=== PATIENT | female | born 1965 | race Caucasian/White ===

== ENCOUNTER → 2019-12-26 | Outpatient (CLI) | payer OTHER ==
[2019-12-26 10:45] LABS: Basophils # (A) 0.1 k/uL (0-0.2); Basophils % (A) 1 %; Eosinophils # (A) 0.3 k/uL (0-0.7); Eosinophils % (A) 3 %; HCT 39.5 % (34.0-46.0); HGB 13.3 gm/dL (11.4-16.0); Lymphocytes # (A) 3.1 k/uL (1.0-4.8); Lymphocytes % (A) 31 %; MCH 30.5 pg (25.0-35.0); MCHC 33.6 g/dL (31.0-37.0); MCV 90.9 fL (80.0-100.0); Mean Platelet Volume 7.2; Monocytes # (A) 0.4 k/uL (0-1.0); Monocytes % (A) 4 %; Neutrophils # (A) 5.8 k/uL (1.3-7.7); Neutrophils % (A) 58 %; Platelet Count 323 k/uL (150-450); RBC 4.35 m/uL (3.80-5.40); RDW 12.4 % (11.5-15.5)
[2019-12-26 15:58] LABS: African American GFR (CKD) 114.6 (60.0-200.0); Albumin 4.6 g/dL (3.80-4.90); Anion Gap 4.8 mmol/L (4.00-12.00); Calcium 9.9 mg/dL (8.7-10.3); Carbon Dioxide 31.2 mmol/L (21.6-31.8); Chol/HDL Ratio 2.64; Globulin 2.3 g/dL (1.6-3.3); LDL Cholesterol,Calculated 110.6 mg/dL (0.0-131.0); Non-African American GFR(CKD) 98.9 (60.0-200.0); Potassium 4.7 mmol/L (3.5-5.5); Total Bilirubin 0.8 mg/dL (0.2-1.2); Total Protein 6.9 g/dL (6.2-8.2); VLDL Calculation 14.4 mg/dL (5.00-40.00)
== END | disposition home or self-care (01) ==
LOC: LABWHC1 10:17
PROVIDERS: ATTEND Nurse Practitioner Family
DX: K21.9 Gastro-esophageal reflux disease without esophagitis (principal); R53.83 Other fatigue; Z13.228 Encounter for screening for other metabolic disorders; Z13.220 Encounter for screening for lipoid disorders; Z98.84 Bariatric surgery status
CPT/HCPCS: 36415; 80053; 80061; 82150; 82306; 82607; 83690; 84443; 85025

== ENCOUNTER → 2021-03-17 | Outpatient (CLI) | payer OTHER ==
--- NOTE | 2021-03-18 03:24 | MR ---
EXAMINATION TYPE: MR shoulder RT wo con DATE OF EXAM: 03/17/2021 COMPARISON: None HISTORY: Right shoulder pain, injury 6 mos ago. Multiplanar multiecho imaging of the right shoulder was performed without contrast. There is shoulder joint effusion. Subscapularis tendon is intact. Biceps tendon is intact. There is f luid around the biceps tendon. There is moderate hypertrophic spurring at the AC joint with mild suba cromial impingement. There is significant thickening and increased signal in the supraspinatus tendon over the top of the humeral head and at the greater tuberosity of the humerus. There is full-thickne ss tear of the tendon without retraction. There is no evidence of a fracture. Glenoid katie appear intact. Scapula appears intact. IMPRESSION: Moderate shoulder joint effusion. Full-thickness tear of the supraspinatus tendon without retraction. No fracture seen.
== END | disposition home or self-care (01) ==
LOC: RADMRIMAIN 19:12
PROVIDERS: ATTEND Orthopaedic Surgery
DX: M75.121 Complete rotator cuff tear or rupture of right shoulder, not specified as traumatic (principal)

== ENCOUNTER → 2021-03-22 | Outpatient (CLI) | payer OTHER ==
--- NOTE | 2021-03-23 07:56 | CT ---
EXAMINATION TYPE: CT lumbar spine wo con DATE OF EXAM: 03/22/2021 5:28 PM COMPARISON: None. HISTORY: low back pain CT DLP: 876.3 mGycm Automated exposure control for dose reduction was used. Unenhanced CT of the lumbar spine was performed. Bone and soft tissue window settings are submitted as well as coronal and sagittal reconstructions. There are 5 lumbar-type vertebra. There is grade 1 anterolisthesis L4 on L5. Vertebral body heights a nd disc space heights are maintained. Axial images show T12-L1, L1-L2, and L2-L3 levels to appear within normal limits. Axial images at L3-L4 levels with mild/moderate facet degenerative changes and ligamentum flavum hype rtrophy causing posterolateral thecal sac. There is mild broad-based disc bulge effacing the anterior thecal sac. There is mild bilateral anterior inferior neural foraminal narrowing. Axial images at the L4-L5 level show moderate to advanced facet degenerative changes bilaterally. The spondylolisthesis with broad-based posterior disc protrusion. There is effacement of the anterior an d posterior lateral thecal sac and image 50. Prominent spinal canal stenosis at this level. Mild bila teral neural foraminal narrowing. Axial images at L5-S1 levels with moderate facet arthropathy bilaterally. Spinal canal is preserved. The bilateral neural foramina are patent. Paraspinal muscle bulk is maintained. IMPRESSION: Spondylolisthesis L4-L5 level. Multilevel degenerative changes L3-L4 through L5-S1 levels as detailed above. Most prominent spinal canal effacement or stenosis at L4-L5 level.
== END | disposition home or self-care (01) ==
LOC: RADCTMAIN 17:11
PROVIDERS: ATTEND Orthopaedic Surgery
DX: M51.26 Other intervertebral disc displacement, lumbar region (principal); M48.061 Spinal stenosis, lumbar region without neurogenic claudication; M47.817 Spondylosis without myelopathy or radiculopathy, lumbosacral region; M99.71 Connective tissue and disc stenosis of intervertebral foramina of cervical region; M43.16 Spondylolisthesis, lumbar region
CPT/HCPCS: 72131

== ENCOUNTER → 2021-06-27 | Outpatient (CLI) | payer OTHER ==
--- NOTE | 2021-06-27 17:32 | MR ---
EXAMINATION TYPE: MR lumbar spine wo con DATE OF EXAM: 06/27/2021 COMPARISON: CT 03/22/2021 HISTORY: Low back pain radiating into hips and disha lower extremities TECHNIQUE: Multiplanar, multisequence images of the lumbar spine were acquired without IV contrast. L1-L2: Normal disc appearance without desiccation. No herniation, protrusion or disc bulging. No ca nal stenosis is present. Foramina are patent bilaterally. There is some facet arthropathy change. L2-L3: Normal disc appearance without desiccation. No herniation, protrusion or disc bulging. No ca nal stenosis is present. Foramina are patent bilaterally. Facet arthropathy changes are present, hyp ertrophic change causes some minimal posterior lateral mass effect on the thecal sac. L3-L4: Normal disc appearance without desiccation. No herniation, protrusion or disc bulging. No ca nal stenosis is present. Foramina are patent bilaterally. There is some facet arthropathy with hyper trophy ligamentum flavum. There is posterior lateral mass effect on the thecal sac. L4-L5: Listhesis contributes with significant facet arthropathy change which encroaches on the latera l recesses greater on the right than on the left to cause a trefoil appearance of the thecal sac, jasmin e canal central stenosis. Listhesis also contributes to cause foraminal encroachment. No disc herniat ion. L5-S1: There is facet arthropathy change present. No evident disc herniation. Facet arthropathy encro ach somewhat on the lateral recess greater on the left than on the right. Lumbar segments are intact. No paraspinal masses are identified. Conus medullaris has a normal appe arance. Anterolisthes grade 1 at L4-5. There is some loss of disc signal L4-5 consistent with disc de siccation, some mild loss of disc height. IMPRESSION: Facet arthropathy, spondylolisthesis with spinal stenosis noted at L4-5.
== END | disposition home or self-care (01) ==
LOC: RADMRIMAIN 12:56
PROVIDERS: ATTEND Orthopaedic Surgery
DX: M48.061 Spinal stenosis, lumbar region without neurogenic claudication (principal); M47.26 Other spondylosis with radiculopathy, lumbar region; M43.16 Spondylolisthesis, lumbar region
CPT/HCPCS: 72148

== ENCOUNTER → 2022-04-16 | Outpatient (CLI) | payer OTHER | END | disposition home or self-care (01) | LOC: LABPAT 09:26 | PROVIDERS: ATTEND Orthopaedic Surgery | DX: Z53.9 Procedure and treatment not carried out, unspecified reason (principal) ==

== ENCOUNTER → 2022-06-11 | Outpatient (CLI) | payer OTHER ==
[2022-06-11 18:44] LABS: Basophils # (A) 0.15 X 10*3/uL (0.00-0.10); Basophils % (A) 1.6 %; Eosinophils # (A) 0.33 X 10*3/uL (0.04-0.35); Eosinophils % (A) 3.4 %; HCT 37.6 % (37.2-46.3); HGB 12.6 g/dL (12.0-15.0); Immature Grans, Automated 0.2 %; Lymphocytes % (A) 40.6 %; MCH 30.2 pg (27.0-32.0); MCHC 33.5 g/dL (32.0-37.0); MCV 90.2 fL (80.0-97.0); Monocytes # (A) 0.77 X 10*3/uL (0.20-1.00); NRBC Per 100 WBC 0 /100 WBCS (0.0-0.0); Neutrophils # (A) 4.43 X 10*3/uL (1.80-7.70); Neutrophils % (A) 46.2 %; Platelet Count 286 X 10*3/uL (140-440); RBC 4.17 X 10*6/uL (4.10-5.20)
[2022-06-11 18:53] LABS: African American GFR (CKD) 109.1 (60.0-200.0); Anion Gap 11.2 mmol/L (10.00-18.00); BUN/Creat Ratio 13.43 Ratio (12.00-20.00); Blood Urea Nitrogen 9.6 mg/dL (9.0-27.0); Calcium 9.2 mg/dL (8.7-10.3); Carbon Dioxide 24.6 mmol/L (20.0-27.5); Non-African American GFR(CKD) 94.1 (60.0-200.0); Potassium 4.4 mmol/L (3.5-5.5)
[2022-06-11 19:04] LABS: INR 0.92 (0.90-1.11); Prothrombin Time 10.4 sec (9.9-11.9)
== END | disposition home or self-care (01) ==
LOC: LABPAT 14:41
PROVIDERS: ATTEND Orthopaedic Surgery
DX: Z01.812 Encounter for preprocedural laboratory examination (principal); M43.16 Spondylolisthesis, lumbar region; Z22.322 Carrier or suspected carrier of Methicillin resistant Staphylococcus aureus
CPT/HCPCS: 80048; 85025; 85610; 87070

== ENCOUNTER 2022-07-03 14:50 | Inpatient (IN) | payer OTHER ==
[2022-06-28 14:00] VITALS: BMI 35.3
[~2022-07-03 14:50] MED LIST: ACETAMINOPHEN TAB 500 MG TAB PO PRN; GABAPENTIN 300 MG CAP PO PRN; HYDROmorphone 0.5 MG/0.5 ML SYRINGE IVP PRN; LIDOCAINE 1% (10MG/ML) FOR IV START INTRADERMA PRN; ONDANSETRON 4 MG/2 ML VIAL IVP ONE; ONDANSETRON 4 MG/2 ML VIAL IVP PRN; SCOPOLAMINE 1 MG/72 HR PATCH TRANSDERM ONE; TRANEXAMIC ACID IN NACL,ISO-OS 1,000 MG in SALINE 1 100ML.BAG IVPB PRN
[2022-07-03] MEDS ORDERED: THROMBIN (BOVINE) 5,000 UNIT VIAL ONE (15:01)
[2022-07-03] MEDS ORDERED: LABETALOL 5 MG/ML VIAL MDV ONE (15:01)
[2022-07-03] MEDS ORDERED: PROPOFOL 10 MG/ML 20 ML VIAL IV ONE (15:01)
[2022-07-03] MEDS ORDERED: KETAMINE 10 MG/ML 20 ML VIAL ONE (15:01)
[2022-07-03] MEDS ORDERED: GELATIN SPONGE,ABSORB (LARGE) 1 EACH SPONGE ONE (15:01)
[2022-07-03] MEDS ORDERED: ACETAMINOPHEN IV (For NPO) 1,000 MG/100 ML VIAL ONE (15:01)
[2022-07-03] MEDS ORDERED: fentaNYL (PF) 50 MCG/ML 2 ML AMP ONE (15:01)
[2022-07-03] MEDS ORDERED: SUCCINYLCHOLINE CHLORIDE 200 MG/10 ML VIAL IV ONE (15:01)
[2022-07-03] MEDS ORDERED: SODIUM CHLORIDE 0.9% 1,000 ML BAG ONE (15:01)
[2022-07-03] MEDS ORDERED: HYDROmorphone (PF) 1 MG/ML ONE (15:01)
[2022-07-03] MEDS ORDERED: ONDANSETRON 4 MG/2 ML VIAL ONE (15:01)
[2022-07-03] MEDS ORDERED: ROCURONIUM 10 MG/ML (5 ML VIAL) IV ONE (15:01)
[2022-07-03] MEDS ORDERED: NEOSTIGMINE 1 MG/ML 10 ML VIAL ONE (15:01)
[2022-07-03] MEDS ORDERED: TRANEXAMIC ACID IN NACL,ISO-OS 1,000 MG/100 ML BAG ONE (15:01)
[2022-07-03] MEDS ORDERED: GLYCOPYRROLATE 0.2 MG/ML 2 ML VIAL ONE (15:01)
[2022-07-03] MEDS ORDERED: VANCOMYCIN 1,000 MG VIAL ONE (15:01)
[2022-07-03] MEDS ORDERED: GABAPENTIN 300 MG CAP ONE (15:01)
[2022-07-03] MEDS ORDERED: LIDOCAINE 2% INJ 20 MG/ML (2 ML VIAL) ONE (15:01)
[2022-07-03] MEDS ORDERED: DEXAMETHASONE SOD PHOSPHATE 4 MG/ML 1 ML VIAL ONE (15:01)
[2022-07-03] MEDS ORDERED: MIDAZOLAM 2 MG/2 ML VIAL ONE (15:01)
[2022-07-03] MEDS ORDERED: BUPIVACAINE (PF) 0.25% 30 ML VIAL ONE (15:01)
[2022-07-03] MEDS: LACTATED RINGERS 1,000 ML IV SCH (19:50)
[2022-07-03] MEDS ORDERED: HYDROmorphone 1 MG/ML 1 ML SYRINGE IVP PRN (22:10)
[2022-07-03] MEDS ORDERED: HYDROmorphone 0.5 MG/0.5 ML SYRINGE IVP PRN (22:10)
[2022-07-03] MEDS ORDERED: SENNOSIDES 8.6 MG TAB PO PRN (22:15)
[2022-07-03] MEDS ORDERED: HYDROcodone/APAP 5-325MG 1 EACH TAB PO PRN (22:23)
[2022-07-03] MEDS ORDERED: HYDROcodone/APAP 10-325MG 1 EACH TAB PO PRN (22:24)
[2022-07-03] MEDS: SODIUM CHLORIDE 0.9% 1,000 ML IV SCH (23:41)
[2022-07-03] MEDS: GABAPENTIN 300 MG CAP PO SCH (23:43)
[2022-07-03] MEDS: CYCLOBENZAPRINE 5 MG TAB PO SCH (23:43)
[2022-07-04] MEDS: LACTATED RINGERS 1,000 ML IV SCH (02:48)
--- NOTE | 2022-07-04 08:27 | P.PN ---
Subjective Progress Note Date: 07/04/22 pt s/e doing well no issues overnight. Has not been up yet. King in place still. No numbness/tingling or weakness. States she feels better in her legs. denies any bowel/bladder isseus. Objective - Vital Signs Vital signs: Vital Signs Temp 98.0 F 07/04/22 03:18 Pulse 76 07/04/22 03:18 Resp 15 07/04/22 03:18 BP 147/84 07/04/22 03:18 Pulse Ox 97 07/04/22 03:18 FiO2 Intake & Output 07/03/22 07/04/22 07/04/22 18:59 06:59 18:59 Intake Total 50 Output Total 1650 Balance -1600 Weight 86.183 kg Intake: Intake, IV Titration 50 Amount ceFAZolin 2 gm In Sodium 50 Chloride 0.9% 50 ml @ 100 mls/hr IVPB Q8HR [facility] Rx# :[id number] Output: Urine 1650 Other: # Voids 2 - Exam Patient is alert and oriented 3 appears well-nourished well-hydrated is in no acute distress. They do not appear septic. On exam the patient has no tenderness to palpation of her thoracic or lumbar spine. There is no edema or ballottement sign. Lower extremities with [5]/5 strength in all major muscle groups Upper extremities show [5]/5 strength in all major muscle groups. [] [2]/4DTR all UE and LE b/l Patient shows a negative Homans, Mcrae's, negative Babinski's negative clonus bilaterally. negative straight leg raise bilaterally. No tensioning signs. Cranial nerves II through XII are grossly intact. There is FROM that is painless of the b/l UE and LE in all major joints [w/o pain]. They are intact to light touch sensation in L2 to S1 nerve distribution. Patient has palpable dorsalis pedis was posterior tibial pulses. Compartments are soft and compressible. Incisions are clean dry and intact Assessment and Plan Assessment: 57-year-old female postop day 1 L4-L5 minimally invasive TLIF Plan: -Appreciate operations consultant and team management. -Activity: Ambulate QID, OOB all meals, up and about, limit lifting bending twisting to less than 5 lbs. Use walker or cane if needed for stability. -Daily PT/OT, increase ambulation strength and balance. -Brace when up and about, not needed in bed or chair -Pain control: Adequate at this time -Meds: reviewed -GI ppx: sennish Miralax -DC king when up and about, bedside commode if needed -DVT PPX: OK to restart Heparin tonight -Hygiene: Shower today. Maintain dressing clean and dry. Meticulous cleaning after BMs away from incision site -Encourage IS 10x/hr -Dispo: Likely home today once pain control King out and up and about and LSO delivered
[2022-07-04] MEDS: GABAPENTIN 300 MG CAP PO SCH ×2 (09:13→15:57)
[2022-07-04] MEDS: CYCLOBENZAPRINE 5 MG TAB PO SCH ×2 (09:13→15:57)
[2022-07-04 09:37] VITALS: RESP 18
--- NOTE | 2022-07-04 09:40 | P.CONS ---
History of Present Illness - Reason for Consult Consult date: 07/04/22 Medical Management Requesting physician: Laith Albarado - History of Present Illness History of Presenting Illness: Patient is a very pleasant 57-year-old female with a past medical history of GERD, depression, anxiety,and chronic back pain with radiculopathy. Patient is currently admitted under orthospine surgical team and is status post laminectomy and decompression with L4 through L5 interbody fusion. Surgical procedure was completed by Dr. Albarado on 07/03/22. We have been consulted for medical management throughout patient's hospitalization. patient was seen and fully evaluated at bedside this morning. She reports feeling well. Patient reports mild lower back pain that she states is being managed by current pain medication regimen. She denies having any lower extremity weakness/numbness/tingling. Lockhart catheter remains in place. Patient does report a brief episode of postoperative nausea and which she states is currently controlled. Patient reports eating breakfast with no episodes of nausea or vomiting following. Vital signs unremarkable. Patient denies having any needs, concerns, or complaints at this time. Lockhart catheter to be discontinued and voiding challenge to be completed. Review of systems: Pertinent positives and negatives as discussed in HPI, a complete review of systems was performed and all other systems are negative. Physical exam: Vital signs reviewed and stable. General: Nontoxic, no distress and appears stated age. Derm: Skin warm and dry, normal coloration for ethnicity. Head: Atraumatic, normocephalic and symmetric. Eyes: EOMs intact, no lid lag, and anicteric sclera Mouth: no lip lesions, mucus membranes moist Cardiovascular: regular rate and rhythm with normal S1S2, no murmur, positive posterior tibial pulses bilaterally, and cap refill < 2 seconds. Lungs: Respirations even, regular, and unlabored on room air. Lungs CTA bilaterally, no rhonchi, no rales, no wheezing, and no accessory muscle usage. Abdominal: soft, nontender to palpation, no guarding, no appreciable organomegaly Ext: ROM intact. No gross muscle atrophy, no edema, no contractures Neuro: Speech clear, face symmetrical and CN II-XII grossly intact with no noted focal neuro deficits Psych: Alert and oriented to person, place, time, and situation. Appropriate and pleasant affect. Assessment and Plan of Care: Status post laminectomy and decompression with L4 through L5 interbody fusion. -Surgical procedure was completed by Dr. Albarado on 07/03/22. -Management per primary admitting orthospine surgical team including DVT prophylaxis, pain management, postoperative wound/drain management and PT/OT. GERD Continue daily medication regimen with Dexlansoprazole. Depression and anxiety Continue daily medication regimen with amitriptyline Thank you for allowing us to participate in the care of this pleasant patient. Do not hesitate to contact us with questions. Someone can be reached from the [facility] hospitalist group all hours of the day at [phone] or via [employer]. I reviewed the documentation as provided by the OLIVIER above, who is the original author of this note. I agree with the documented assessment and plan, with the following changes: none Past Medical History Past Medical History: GERD/Reflux, Musculoskeletal Disorder Additional Past Medical History / Comment(s): Spinal Stenosis, Sciatica. History of Any Multi-Drug Resistant Organisms: None Reported Past Surgical History: Bariatric Surgery, Section, Cholecystectomy, Hysterectomy, Orthopedic Surgery Additional Past Surgical History / Comment(s): Section X3, bilateral carpal tunnel, gastric sleeve. Past Anesthesia/Blood Transfusion Reactions: Motion Sickness, Postoperative Nausea & Vomiting (PONV) Past Psychological History: No Psychological Hx Reported Smoking Status: Former smoker Past Alcohol Use History: None Reported Additional Past Alcohol Use History / Comment(s): Quit smoking 20 yrs ago. Past Drug Use History: Marijuana Additional Drug Use History / Comment(s): Marijuana use daily. Aware no use 24 hrs prior to procedure. - Past Family History Mother Family Medical History: No Reported History Medications and Allergies Home Medications Medication Instructions Recorded Confirmed Type Amitriptyline HCl 50 mg PO HS 04/24/22 07/03/22 History Dexlansoprazole [Dexilant] 60 mg PO HS 06/19/22 07/03/22 History Ibuprofen [Motrin] 800 mg PO TID PRN 06/20/22 07/03/22 History Lidocaine 5% Patch [Lidoderm 5% 1 patch TOPICAL HS PRN 06/28/22 06/28/22 History Patch] ALPRAZolam [Xanax] 0.25 mg PO TID PRN 07/03/22 07/03/22 History Cyclobenzaprine [Flexeril] 5 mg PO TID #24 tablet 07/04/22 Rx Gabapentin 300 mg PO TID #30 cap 07/04/22 Rx HYDROcodone/APAP 5-325MG [[place] 1 tab PO Q6HR PRN #32 tab 07/04/22 Rx 5-325] Sennosides/Docusate Sodium [Senna 1 each PO DAILY #20 tab 07/04/22 Rx Plus 8.6-50 mg Tablet] cefaDROXiL [Duricef] 500 mg PO Q12HR 5 Days #10 cap 07/04/22 Rx Allergies Allergy/AdvReac Type Severity Reaction Status Date / Time No Known Allergies Allergy Verified 07/03/22 20:13 Physical Exam Osteopathic Statement: *. No significant issues noted on an osteopathic structural exam other than those noted in the History and Physical/Consult. Vitals: Vital Signs Temp Pulse Resp BP Pulse Ox 07/04/22 09:18 18 07/04/22 03:18 98.0 F 76 15 147/84 97 07/03/22 23:04 83 158/90 97 07/03/22 22:04 71 146/87 98 07/03/22 21:34 77 147/94 98 07/03/22 21:12 97.7 F 77 16 155/83 98 07/03/22 21:04 76 158/97 99 Intake and Output 07/03/22 07/04/22 07/04/22 22:59 06:59 14:59 Intake Total 50 Output Total 1650 Balance -1600 Intake: Intake, IV Titration 50 Amount ceFAZolin 2 gm In Sodium 50 Chloride 0.9% 50 ml @ 100 mls/hr IVPB Q8HR [facility] Rx# :[id number] Output: Urine 1650 Other: Voiding Method Indwelling Catheter # Voids 2 Weight 86.183 kg
--- NOTE | 2022-07-04 10:41 | P.OP ---
Date of Procedure: 07/03/22 Preoperative Diagnosis: 1. L4-5 Grade I spondylolisthesis, unstable 2. RLE radciulopathy 3. Mechanical low back pain Postoperative Diagnosis: 1. L4-5 Grade I spondylolisthesis, unstable 2. RLE radciulopathy 3. Mechanical low back pain Procedure(s) Performed: 1. L4-5 posteriolateral and interbody fusion combined minimally invasive (70252) 2. Insertion of biomechanical device L4-5 (88923) 3. L4-5 non segmental instrumentation (27644) 4. Posterior Extradural Laminotomy or Laminectomy for Exploration/ Decompression of Neural Elements L4-5 (72920) 5. Use of intraoperative microscope (77413) 6. Use of intraoperative neuro monitoring 7. Interpretation of intraoperative fluoroscopy less than 1 hour (09895) Implants: -Globus sable cage 9-16 mm x10mm -Thu everest MIS screw and nery system -Nicole -Autograft -Allograft Anesthesia: GETA Surgeon: Laith Albarado Dial Marker #1: Douglas Anguiano (Was present and assisted in all aspects of the case including exposure placement of retractors screw placement cage placement decompression closing and bandages) Estimated Blood Loss (ml): 100 IV fluids (ml): 2,500 Urine output (ml): 300 Pathology: none sent Condition: stable Disposition: PACU Indications for Procedure: 57-year-old female presented for surgery today she has been treated by the [facility] for some time now for her L4 5 grade 1 s pondylolisthesis which is unstable. She has undergone physical therapy home exercise programs medications injections and a slew of other conservative treatment which has failed to alleviate her symptoms. She continues to have severe low back pain and is unable to perform her activities of daily living secondary to this. We discussed all of her options including operative and nonoperative. We discussed different operative options and she has elected for L4 5 MIS T LIF. We discussed risks and benefits of surgery as outlined in the risk review she is ready and willing to proceed with the procedure at this time. Description of Procedure: The patient was seen and examined in the preoperative area. All preoperative protocols were followed. Informed consent was obtained risks and benefits of the procedure were discussed at length. Risks including bleeding infection damage to the surrounding tissue and risk of reoperation were discussed with the patient. Risk of anesthesia up to and including was a discussed with the patient. These are outlined in the risk review. They were willing to accept these risks and all of the risks of surgery. The patient was given a weight- based dose of antibiotics in the form of 2 g Ancef. The patient was seen and evaluated by the anesthesia team who deemed them fit for surgery. The site was marked, the patient was willing to proceed with the procedure. The patient was transferred to the operative suite by the Department of anesthesia. They were then drifted off to sleep by the department anesthesia and GETA was performed. The patient tolerated this well. Lockhart catheter was placed by nursing staff, atraumatically. Once confirmation of lines and ventilation the patient was transferred to a prone Dustin table very carefully. All bony prominences including wrists, elbows, axilla, chest, hips, and thighs, and feet were padded very well. Special attention was paid to the genitalia and these were padded accordingly. SCDs were placed on bilateral lower extremities and were connected. Arms were well padded and placed on arm boards up and out in the 90/90 position. Once in position, again we confirmed good ventilation capabilities and that lines were running appropriately. The patient's lumbar spine was then exposed. 1010s were placed outlining the incision site. Standard alcohol was used to clean the incision site and allowed to dry. C-arm was used to biomark the patient and confirm level for incision which was marked with a skin marker. Operative briefing was performed with all teams and everyone in agreement to proceed. The patient was then prepped and draped in a normal sterile fashion. Timeout was then performed and all parties were in agreement with the procedure to be performed. Fluoroscopic guidance was then used to place a tubular retractor system in an optimal position on the right-hand side of the patient at L4-L5. Skin incision was made and sequential dilation taken down to the L4-L5 interspace facet joints and pars. Once the tubular retractor system was in a good position AP and lateral imaging confirmed its positioning. The operating microscope was then brought in for visualization. We then performed limited myomectomy which uncovered the facet joints and revealed a pars defect at the L4 pars. We have performed a L-shaped cut over the lamina and inferior articular facet of L4 using a high-speed bur. This loosened the facet. Osteotome was then used to complete this cut and the facet was removed entirely along with the pars defect. We then performed high-speed bur cut transversely over the superior articular facet of L5 osteotome was then used to complete this cut and this opened up the foramen in this area for a pedicle to pedicle decompression. We finished our medial decompression with a 3 Kerrison performing an extra dural decompression of neural elements. The ligamentum flavum was removed as it was compressive in pathology. An [id number] decompression was then performed using Kerrison rongeurs. We then turned our attention back to the foramen the disc was identified the foraminal ligament was removed and the neural elements were mobilized this mobilization allowed for protection the disc space was identified. An osteotome was then used to access the disc space and under lateral fluoroscopic guidance it was advanced until it was centered in A to P view and anterior on the lateral view. We then perform sequential shaving until endplates were clear of any cartilage and disc material had been removed pituitary was used to remove any further free disc material. Down-biting curet was used to scrape endplates and to reach across midline to remove further disc material across midline. We then used blunt trials to trial the size implant desired. A 12 mm trial was placed and it had good fit and showed good lift and reduction. This was removed. We then irrigated the disc space. A mixture of autograft and allograft was then placed anterior within the disc space and impacted using a blunt trial. The cage was then selected and while protecting neural elements the cage was impacted into position under lateral fluoroscopic guidance. It was then expanded until it met the endplates and created good lift and reduction. The cage was tested and it was stable. Cages then back filled with DBM putty. The contact center agent was removed and the cage was then visualized and tested again it was stable and in good position. AP confirmed good central position. We then irrigated out the area perform meticulous hemostasis inspected the area for any issues and everything was stable. There were no dural tears there was good decompression of the extradural elements. The tubular retractor system was then carefully removed under direct visualization. We then turned our attention to placement of screws [employer]'s spine mask navigation was used for the placement of screws at L4 and L5. The spine mask was placed in a 3-D C-arm spent was obtained and registered. It was then confirmed to be accurate. We then navigated a Jamshidi into the pedicles and vertebral bodies of L4 and L5 respectively wires were placed in the void of the Jamshidi. The perfect scalpel was used over these wires to create a path. Screws were then measured and placed over these wires using a navigated screwdriver. Once the screw was at the back of the body the wire was pulled and screws were advanced until an optimal position. Once screws were in place they were tested and all tested above 20 mA. With screws in position we measured for a nery once the nery was measured was selected and the nery was placed subfascially bilaterally. We then lock set screws into L5 bilaterally and sequentially reduced set screws into L4 bilaterally for spondylolisthesis reduction this was done under lateral fluoroscopic guidance. This showed good reduction of listhesis as well as maintenance of height and decompression. Set screws were then final tightened using torque limiter. Tabs were then broken and confirmed to be removed. Final imaging was then taken AP and lateral confirmed good placement of screws as well as cage with good reduction of listhesis in good decompression. Wounds were then copiously irrigated with normal sterile saline. Deep fascia was closed with 0 Vicryl superficial subcu tissue closed with 2-0 Vicryl and sk in closed with skin lexi. Wound edges approximated very well. The wound was then cleaned and dressed sterilely with operative foam dressings. The patient was transferred back to their hospital bed atraumatically. Drain continued to hold suction and were in good position. Patient was then awakened and extubated by the department of anesthesia having tolerated the procedure very well with no complications. They were transferred to the postoperative care unit in stable condition.
[2022-07-04] MEDS: SODIUM CHLORIDE 0.9% 1,000 ML IV SCH (13:19)
[2022-07-04 14:42] VITALS: BP 149/90; PULSE 83; TEMP 98.4
--- NOTE | 2022-07-04 15:00 | P.DS ---
Providers Date of admission: 07/03/22 18:32 Expected date of discharge: 07/04/22 Attending physician: Laith Albarado DO Consults: 07/03/22 22:15 Consult Physician Routine Consulting Provider: Eloina Banks Consult Reason/Comments: Medical Management Do you want consulting provider notified?: Yes Primary care physician: [facility] Course: Date of admission: 07/03/2022 Date of discharge: 07/04/2022 Admission diagnosis: 1. L4-5 Grade I spondylolisthesis, unstable 2. RLE radciulopathy 3. Mechanical low back pain Discharge diagnosis: Same Attending physician: Dr. Albarado Surgical procedures: L4-L5 MIS TLIF Brief history: Patient is a 57-year-old female with a history of L4-L5 grade 1 spondylolisthesis, unstable; right lower extremity radiculopathy; mechanical low back pain. At this point patient has failed conservative treatment measures and has opted to proceed with a elective L4-L5 MIS TLIF. Hospital course: Details of patient's surgery can be found in operative report. Patient tolerated the procedure well and was subsequently transported to orthopedic floor. Patient's orthopeidc and medical care was provided daily. Patient had daily laboratory tests performed for evaluation of overall blood counts. Patient had daily physical therapy to include strengthening range of motion as well as education with walker ambulation. Patient was noted to have a relatively uneventful postoperative course. Patient reported satisfactory pain control with oral pain medications by postoperative day 1. Patient showed satisfactory progress with physical therapy. Patient moved steadily through the program and had no difficulty meeting the goals by postoperative day 1. Given patient's otherwise satisfactory course and having met physical therapy goals, plan is to discharge patient home with health services on postoperative day 1. Discharge condition/disposition: Patient will be discharged home with health services in stable condition. Discharge medications: Instructions are given on resumption of patient's normal daily medications per primary care recommendation, in addition patient will be p rescribed Vermillion; gabapentin; Flexeril; senna; Duricef. Spine Discharge and Recovery Instructions Date of Surgery: 07/03/2022 Diagnosis: L4-L5 grade 1 spondylolisthesis, unstable; right lower shoulder radiculopathy; mechanical low back pain Procedure: L4-L5 MIS TLIF Medications: See medication list All medication refills should be obtained through your primary care doctor or your clinic spine surgeon. Please discuss prescription refills at your follow up appointment. Do not call the hospital for medication refills. Dressing: Leave your dressing in place for a total of 5 days post operatively. Then you may remove your dressing and leave open to air. Keep the area clean and if not able to keep area clean, then cover with sterile gauze and tape. Showering: You may shower 3 days after your procedure allowing soap and water to run over incision. Do not scrub. Do not soak. Blot dry. Follow up: Please confirm a follow up appointment with your surgeon 3 weeks post operatively. Please make an appointment to follow up with your PCP in 1-2 weeks after surgery for evaluation 3 phase, 3-week plan POST OP WEEKS 1-3 1. Lifting/carrying/pushing/pulling limited to less than 5 pounds. 2. Do not sit for longer than 15 minutes at one time. Get up and walk around. Prolonged sitting is NOT advised. If you lay down, see if you can tolerate laying down on you front (belly side) 3. Walk for periods of 15 minutes = 1 mile but no longer; do it multiple times times each day. 4. Ice your low back after activity. POST OP WEEKS 3-6 1. Lifting limited to less than 20 pounds. 2. Do not sit for longer than 30 minutes at a time. Frequently change positions. Use a sit-to stand workstation or take frequent breaks from sitting if you have returned to work. 3. Walk for 30 minutes each day. If possible, do these three or more times a day POST OP WEEKS 6+ At your 6-week appointment we will give you a physical therapy referral to focus on a core stabilization and strengthening program. You should also work on leg & buttock strengthening, hamstring & quadriceps stretching, and continue a low impact aerobic activity program such as swimming, walking, or riding a stationary bicycle. During the initial 6 weeks after your surgery, you are at the highest risk of re-injuring your spine. You should generally avoid BLTs (bending, lifting and twisting combination motions) and follow the above guidelines to reduce the chance of reinjury. You can anticipate post op appointments in our office at approximately 3 weeks and 6 weeks after your surgery. INCISION CARE: If your incision is not draining you do NOT need to cover it with a dressing. Keep your incision clean, dry and intact. In most cases, we apply skin glue, lexi or sutures to the incision at the time of surgery. This will be like a crust or have the appearance of a scab and will fall off in time on its own. The stitches or lexi need to be removed at 3 weeks post op appointment. You may begin to shower 3 days after surgery (this allows the glue to giraldo well). However, please avoid scrubbing the incision site or peeling off any of the skin glue. This will ensure optimal healing of your incision. Also, during this time avoid soaking the incision area in water - this includes swimming pools, hot tubs or baths. No ointments, lotions or oils on the incision until your surgeon allows. Leave lexi, sutures or glue in place. Neurological dysfunction that comes on suddenly can also be a sign of a stroke. Below some common symptoms of a stroke are listed: B - balance difficulty such as sudden onset walking or leaning to one side - NEW E - eye problem such as sudden double vision or trouble seeing on one side - NEW F - Facial weakness or numbness on one side - NEW A - Arm or leg weakness or numbness on one side - NEW S - Slurred speech or difficulty with word finding - NEW T - Time is BRAIN! Call 911 as soon as you recognize these symptoms Diet: Consume a regular diet rich in vegetables and lean protein such as chicken or fish. You should consume in a ratio of approximately 20% fats|40% carbohydrates|40%protein. Vegetables, sweet potatoes, brown rice or quinoa are examples of good carbohydrates. Chips, white bread, cookies and sweets/sugar are examples of bad carbohydrates. Limit your bad carbs, go wild with good carbs. "Life's Simple 7" Guidelines as per [place] [employer] These will help you reclaim your life after surgery and bander and cellophaner helper machine in your recovery, keeping in mind your restrictions. (1) Get Active. Physical activity can help people lose weight, control high blood pressure and cholesterol, feel emotionally better, and sleep better. (2) Control Cholesterol. Avoid a diet high in saturated fat, trans fat, & cholesterol. Limit whole milk & cream, ice cream, butter, egg yolks, processed meats (like sausage and hot dogs), and fatty meats. Choose healthy foods that are low in saturated fat, trans fat and cholesterol which include: Fruits and vegetables, fiber rich grain products (like whole grain pasta and brown rice), lean meat such as chicken, fish, nuts, seeds, and legumes. (3) Eat Better. Eat small portions. Shop at the grocery with a list and do not stray from it. Tips for a healthy diet include: Limit sodium intake to less than 1500mg daily, avoid prepackaged, processed, and fast foods, choose a diet rich in fruits, vegetables, and whole grain, high fiber foods, and limit saturated & cholesterol in your diet. (4) Manage Blood Pressure. If you have high blood pressure, you should have a cuff at home so that you can check your blood pressure regularly. Be sure you have a good cuff. An arm one is generally better than a wrist one. Bring the cuff to a doctor's appointment to validate that the measurements that your cuff are taking are accurate. Take your blood pressure twice daily when you are sitting down and relaxing. Record the numbers in a log and bring this log with you to your doctors' appointments. (5) Lose Weight if your BMI is above 25. A healthy BMI is between 19-25. To calculate Your BMI, you may use a Standard BMI Calculator on the NIH BMI website: <www.nhlbi.nih.gov/guidelines/obesity/BMI/bmicalc.htm>. Weigh oneself daily. If you are overweight, set a goal to lose weight. A pound a week loss if needed is a good target. (6) Reduce Blood Sugar. Limit foods and liquids with "added sugars." (Added sugars include sucrose, fructose, glucose, maltose, dextrose, high fructose corn syrup, corn syrup, concentrated fruit juice and honey). (7) Stop Smoking. If you smoke, quitting smoking is one of the best things that you can do for your health. Smoking increases your risk of heart attack, stroke, and peripheral vascular disease, which is a build-up of plaque in your arteries. Please discard all the cigarettes and lighters in your house. Have a plan for what you will do when you have the urge to smoke. Direct and second- hand smoke shortens your life as well as the lives of your family, friends and others around you. For your health and the health of those around you, please consider quitting! Proper Bending Body Mechanics: Maintain a wide stance with one foot slightly in front of the other. Keep your back straight. Bend utilizing the strength in your hips and knees. Do not bend at the waist. Maintain the lifted object at your waist-level close to your body. Avoid lifting weight that causes immediately pain or pain anywhere in the body afterwards. Smoking/Nicotine If there was ever one thing that you could do to increase your overall health, decrease your risk of cardiovascular problems by about 39% the second you make the choice, it is to STOP SMOKING. Your body's most instant gratification is the second you stop smoking. We have all heard the studies, read the articles but it is true, smoking is extremely bad for your overall health, and moreover it is detrimental to your bone health. Nicotine, IN ANY FORM, kills bone cells, prevents your body from healing fractures, and significantly prolongs healing after surgery. In spine surgery specifically, it increases your risk of not healing your bones to create a fusion and increases your risk of having a revision surgery due to this up to 60%. I know it is hard. I know it feels impossible. But there are ways. Take control of your life. We are here to help you through it. And when you are ready, ask us and we can direct you to help if you desire. Use the START Plan to Quit Smoking (please visit the Helpguide.org website listed below for more information): S = Set a quit date. Choose a date within the next 2 weeks, so you have enough time to prepare without losing your motivation to quit. If you mainly smoke at work, quit on the weekend, so you have a few days to adjust to the change. T = Tell family, friends, and co-workers that you plan to quit. Let your friends and family in on your plan to quit smoking and tell them you need their support and encouragement to stop. Look for a quit chela who wants to stop smoking as well. You can help each other get through the rough times. A = Anticipate and plan for the challenges you'll face while quitting. Most people who begin smoking again do so within the first 3 months. You can help yourself make it through by preparing ahead for common challenges, such as nicotine withdrawal and cigarette cravings. R = Remove cigarettes and other tobacco products from your home, car, and work. Throw away all your cigarettes (no emergency pack!), lighters, ashtrays, and matches. Wash your clothes and freshen up anything that smells like smoke. Shampoo your car, clean your drapes and carpet, and steam your furniture. T = Talk to your doctor about getting help to quit. Your doctor can prescribe medication to help with withdrawal and suggest other alternatives. If you can't see a doctor, you can get many products over the counter at your local pharmacy or grocery store, including the nicotine patch, nicotine lozenges, and nicotine gum. Resources for Quitting Smoking: <https ://www.[place].gov/documents/[facility]/Quit_Tobacco_Resources_for_patients_313480_7. pdf> Supplementation: Take recommended dosages of Vitamin D and Calcium to help fortify your bones and help them to heal. See your health maintenance packet for dosages and recommended levels. DVT/VTE prophylaxis: You will be given compression stockings from the hospital. Wear these daily for the first two weeks after surgery. You may take them off at night. You may be prescribed a medication to help thin your blood. Take this as directed. If you are not prescribed this medication, early and frequent ambulation has been shown to be the best prophylaxis to deep vein thrombosis and sequelae related to this event. Assessment: 1. L4-5 Grade I spondylolisthesis, unstable 2. RLE radciulopathy 3. Mechanical low back pain Procedures: L4-L5 MIS TLIF Patient Condition at Discharge: Good Plan - Discharge Summary Discharge Rx Participant: Yes New Discharge Prescriptions: New HYDROcodone/APAP 5-325MG [Vermillion 5-325] 1 tab PO Q6HR PRN #32 tab PRN Reason: Pain cefaDROXiL [Duricef] 500 mg PO Q12HR 5 Days #10 cap Sennosides/Docusate Sodium [Senna Plus 8.6-50 mg Tablet] 1 each PO DAILY #20 tab Gabapentin 300 mg PO TID #30 cap Cyclobenzaprine [Flexeril] 5 mg PO TID #24 tablet Continue Amitriptyline HCl 50 mg PO HS Dexlansoprazole [Dexilant] 60 mg PO HS Lidocaine 5% Patch [Lidoderm 5% Patch] 1 patch TOPICAL HS PRN PRN Reason: Pain ALPRAZolam [Xanax] 0.25 mg PO TID PRN PRN Reason: Anxiety No Action Ibuprofen [Motrin] 800 mg PO TID PRN PRN Reason: Pain Discharge Medication List Amitriptyline HCl 50 mg PO HS 04/24/22 [History] Dexlansoprazole [Dexilant] 60 mg PO HS 06/19/22 [History] Ibuprofen [Motrin] 800 mg PO TID PRN 06/20/22 [History] Lidocaine 5% Patch [Lidoderm 5% Patch] 1 patch TOPICAL HS PRN 06/28/22 [History] ALPRAZolam [Xanax] 0.25 mg PO TID PRN 07/03/22 [History] Cyclobenzaprine [Flexeril] 5 mg PO TID #24 tablet 07/04/22 [Rx] Gabapentin 300 mg PO TID #30 cap 07/04/22 [Rx] HYDROcodone/APAP 5-325MG [Vermillion 5-325] 1 tab PO Q6HR PRN #32 tab 07/04/22 [Rx] Sennosides/Docusate Sodium [Senna Plus 8.6-50 mg Tablet] 1 each PO DAILY #20 tab 07/04/22 [Rx] cefaDROXiL [Duricef] 500 mg PO Q12HR 5 Days #10 cap 07/04/22 [Rx] Follow up Appointment(s)/Referral(s): Laith Albarado DO [Doctor of Osteopathic Medicine] - 2 Weeks Activity/Diet/Wound Care/Special Instructions: Spine Discharge and Recovery Instructions Date of Surgery: 07/03/2022 - Silver foam dressing may be removed on 07/09/2022. Keep dressing clean, dry, intact. - Keep LSO brace on while up and about. May remove while lying down Diagnosis: L4-L5 grade 1 spondylolisthesis, unstable; right lower shoulder radiculopathy; mechanical low back pain Procedure: L4-L5 MIS TLIF Medications: Vermillion; gabapentin; Flexeril; Duricef; senna All medication refills should be obtained through your primary care doctor or your clinic spine surgeon. Please discuss prescription refills at your follow up appointment. Do not call the hospital for medication refills. Dressing: Leave your dressing in place for a total of 5 days post operatively. Then you may remove your dressing and leave open to air. Keep the area clean and if not able to keep area clean, then cover with sterile gauze and tape. Showering: You may shower 3 days after your procedure allowing soap and water to run over incision. Do not scrub. Do not soak. Blot dry. Follow up: Please confirm a follow up appointment with your surgeon 3 weeks post operatively. Please make an appointment to follow up with your PCP in 1-2 weeks after surgery for evaluation 3 phase, 3-week plan POST OP WEEKS 1-3 1. Lifting/carrying/pushing/pulling limited to less than 5 pounds. 2. Do not sit for longer than 15 minutes at one time. Get up and walk around. Prolonged sitting is NOT advised. If you lay down, see if you can tolerate laying down on you front (belly side) 3. Walk for periods of 15 minutes = 1 mile but no longer; do it multiple times times each day. 4. Ice your low back after activity. POST OP WEEKS 3-6 1. Lifting limited to less than 20 pounds. 2. Do not sit for longer than 30 minutes at a time. Frequently change positions. Use a sit-to stand workstation or take frequent breaks from sitting if you have returned to work. 3. Walk for 30 minutes each day. If possible, do these three or more times a day POST OP WEEKS 6+ At your 6-week appointment we will give you a physical therapy referral to focus on a core stabilization and strengthening program. You should also work on leg & buttock strengthening, hamstring & quadriceps stretching, and continue a low impact aerobic activity program such as swimming, walking, or riding a stationary bicycle. During the initial 6 weeks after your surgery, you are at the highest risk of re-injuring your spine. You should generally avoid BLTs (bending, lifting and twisting combination motions) and follow the above guidelines to reduce the chance of reinjury. You can anticipate post op appointments in our office at approximately 3 weeks and 6 weeks after your surgery. INCISION CARE: If your incision is not draining you do NOT need to cover it with a dressing. Keep your incision clean, dry and intact. In most cases, we apply skin glue, lexi or sutures to the incision at the time of surgery. This will be like a crust or have the appearance of a scab and will fall off in time on its own. The stitches or lexi need to be removed at 3 weeks post op appointment. You may begin to shower 3 days after surgery (this allows the glue to giraldo well). However, please avoid scrubbing the incision site or peeling off any of the skin glue. This will ensure optimal healing of your incision. Also, during this time avoid soaking the incision area in water - this includes swimming pools, hot tubs or baths. No ointments, lotions or oils on the incision until your surgeon allows. Leave lexi, sutures or glue in place. Neurological dysfunction that comes on suddenly can also be a sign of a stroke. Below some common symptoms of a stroke are listed: B - balance difficulty such as sudden onset walking or leaning to one side - NEW E - eye problem such as sudden double vision or trouble seeing on one side - NEW F - Facial weakness or numbness on one side - NEW A - Arm or leg weakness or numbness on one side - NEW S - Slurred speech or difficulty with word finding - NEW T - Time is BRAIN! Call 911 as soon as you recognize these symptoms Diet: Consume a regular diet rich in vegetables and lean protein such as chicken or fish. You should consume in a ratio of approximately 20% fats|40% carbohydrates|40%protein. Vegetables, sweet potatoes, brown rice or quinoa are examples of good carbohydrates. Chips, white bread, cookies and sweets/sugar are examples of bad carbohydrates. Limit your bad carbs, go wild with good carbs. "Life's Simple 7" Guidelines as per [place] [employer] These will help you reclaim your life after surgery and bander and cellophaner helper machine in your recovery, keeping in mind your restrictions. (1) Get Active. Physical activity can help people lose weight, control high blood pressure and cholesterol, feel emotionally better, and sleep better. (2) Control Cholesterol. Avoid a diet high in saturated fat, trans fat, & cholesterol. Limit whole milk & cream, ice cream, butter, egg yolks, processed meats (like sausage and hot dogs), and fatty meats. Choose healthy foods that are low in saturated fat, trans fat and cholesterol which include: Fruits and vegetables, fiber rich grain products (like whole grain pasta and brown rice), lean meat such as chicken, fish, nuts, seeds, and legumes. (3) Eat Better. Eat small portions. Shop at the grocery with a list and do not stray from it. Tips for a healthy diet include: Limit sodium intake to less than 1500mg daily, avoid prepackaged, processed, and fast foods, choose a diet rich in fruits, vegetables, and whole grain, high fiber foods, and limit saturated & cholesterol in your diet. (4) Manage Blood Pressure. If you have high blood pressure, you should have a cuff at home so that you can check your blood pressure regularly. Be sure you have a good cuff. An arm one is generally better than a wrist one. Bring the cuff to a doctor's appointment to validate that the measurements that your cuff are taking are accurate. Take your blood pressure twice daily when you are sitting down and relaxing. Record the numbers in a log and bring this log with you to your doctors' appointments. (5) Lose Weight if your BMI is above 25. A healthy BMI is between 19-25. To calculate Your BMI, you may use a Standard BMI Calculator on the NIH BMI website: <www.nhlbi.nih.gov/guidelines/obesity/BMI/bmicalc.htm>. Weigh oneself daily. If you are overweight, set a goal to lose weight. A pound a week loss if needed is a good target. (6) Reduce Blood Sugar. Limit foods and liquids with "added sugars." (Added sugars include sucrose, fructose, glucose, maltose, dextrose, high fructose corn syrup, corn syrup, concentrated fruit juice and honey). (7) Stop Smoking. If you smoke, quitting smoking is one of the best things that you can do for your health. Smoking increases your risk of heart attack, stroke, and peripheral vascular disease, which is a build-up of plaque in your arteries. Please discard all the cigarettes and lighters in your house. Have a plan for what you will do when you have the urge to smoke. Direct and second- hand smoke shortens your life as well as the lives of your family, friends and others around you. For your health and the health of those around you, please consider quitting! Proper Bending Body Mechanics: Maintain a wide stance with one foot slightly in front of the other. Keep your back straight. Bend utilizing the strength in your hips and knees. Do not bend at the waist. Maintain the lifted object at your waist-level close to your body. Avoid lifting weight that causes immediately pain or pain anywhere in the body afterwards. Smoking/Nicotine If there was ever one thing that you could do to increase your overall health, decrease your risk of cardiovascular problems by about 39% the second you make the choice, it is to STOP SMOKING. Your body's most instant gratification is the second you stop smoking. We have all heard the studies, read the articles but it is true, smoking is extremely bad for your overall health, and moreover it is detrimental to your bone health. Nicotine, IN ANY FORM, kills bone cells, prevents your body from healing fractures, and significantly prolongs healing after surgery. In spine surgery specifically, it increases your risk of not healing your bones to create a fusion and increases your risk of having a revision surgery due to this up to 60%. I know it is hard. I know it feels impossible. But there are ways. Take control of your life. We are here to help you through it. And when you are ready, ask us and we can direct you to help if you desire. Use the START Plan to Quit Smoking (please visit the [employer] website listed below for more information): S = Set a quit date. Choose a date within the next 2 weeks, so you have enough time to prepare without losing your motivation to quit. If you mainly smoke at work, quit on the weekend, so you have a few days to adjust to the change. T = Tell family, friends, and co-workers that you plan to quit. Let your friends and family in on your plan to quit smoking and tell them you need their support and encouragement to stop. Look for a quit chela who wants to stop smoking as well. You can help each other get through the rough times. A = Anticipate and plan for the challenges you'll face while quitting. Most people who begin smoking again do so within the first 3 months. You can help yourself make it through by preparing ahead for common challenges, such as nicotine withdrawal and cigarette cravings. R = Remove cigarettes and other tobacco products from your home, car, and work. Throw away all your cigarettes (no emergency pack!), lighters, ashtrays, and matches. Wash your clothes and freshen up anything that smells like smoke. Shampoo your car, clean your drapes and carpet, and steam your furniture. T = Talk to your doctor about getting help to quit. Your doctor can prescribe medication to help with withdrawal and suggest other alternatives. If you can't see a doctor, you can get many products over the counter at your local pharmacy or grocery store, including the nicotine patch, nicotine lozenges, and nicotine gum. Resources for Quitting Smoking: <https://www.[place].gov/documents/[facility]/Quit_Tobacco_Resources_for_patients_313 480_7.pdf> Supplementation: Take recommended dosages of Vitamin D and Calcium to help fortify your bones and help them to heal. See your health maintenance packet for dosages and recommended levels. DVT/VTE prophylaxis: You will be given compression stockings from the hospital. Wear these daily for the first two weeks after surgery. You may take them off at night. You may be prescribed a medication to help thin your blood. Take this as directed. If you are not prescribed this medication, early and frequent ambulation has been shown to be the best prophylaxis to deep vein thrombosis and sequelae related to this event. Discharge Disposition: HOME WITH HOME HEALTH SERVICES
[2022-07-04] MEDS ORDERED: AMITRIPTYLINE HCL 50 MG TAB PO SCH (21:00)
[2022-07-04] MEDS ORDERED: PANTOPRAZOLE 40 MG TABLET PO SCH (21:00)
--- NOTE | 2022-07-06 11:47 | CT ---
EXAMINATION TYPE: CT lumbar spine wo con DATE OF EXAM: 07/04/2022 COMPARISON: Prior films are unavailable for comparison HISTORY: Postsurgical changes CT DLP: 877.3 mGycm CONTRAST: None TECHNIQUE: CT of the lumbar spine is performed on a spiral scan at 3 mm thick sections. Reconstructed images are performed in the coronal and sagittal planes. FINDINGS: T11-12 through L2-3:: No focal disc herniation or significant disc bulge is evident. No spinal cassius l stenosis or neural foraminal stenosis is present. L3-L4: Broad-based disc bulges mild anterior thecal sac compression. Some beam hardening artifact fro m the L4 pedicle screw causes limitation in evaluation. Facet hypertrophy is present. Some right post erior lateral thecal sac compression appears to be present. L4-L5: Disc spacer is present. Minimal grade 1 spondylolisthesis of L4 internal line may be present. Significant beam hardening artifact limits the canal evaluation. Lateral recess stenosis is likely pr esent. L5-S1: No focal disc herniation or significant disc bulge is evident. No spinal canal stenosis or n eural foraminal stenosis is present IMPRESSION: Lateral recess stenosis with facet hypertrophy L4-5. Disc level has some limitation metallic disc spa cer be artifact from pedicle screws. Minimal grade 1 spondylolisthesis of L4 anterior to L5
== END 2022-07-04 17:30 | disposition home health service (06) | DRG 460 ==
LOC: 6NMEDSUR 18:32
PROVIDERS: ADMIT Orthopaedic Surgery; ATTEND Orthopaedic Surgery
PROC: 0SG00AJ Fusion of Lumbar Vertebral Joint with Interbody Fusion Device, Posterior Approach, Anterior Column, Open Approach (ICD-10-PCS; principal; 2022-07-04)
PROC: 01NB0ZZ Release Lumbar Nerve, Open Approach (ICD-10-PCS; 2022-07-04)
PROC: 4A1004G Monitoring of Central Nervous Electrical Activity, Intraoperative, Open Approach (ICD-10-PCS; 2022-07-04)
DX: M43.16 Spondylolisthesis, lumbar region (principal); F32.A Depression, unspecified; M54.16 Radiculopathy, lumbar region; F41.9 Anxiety disorder, unspecified; G89.29 Other chronic pain; R11.0 Nausea; K21.9 Gastro-esophageal reflux disease without esophagitis; M48.00 Spinal stenosis, site unspecified; M54.30 Sciatica, unspecified side; Z79.899 Other long term (current) drug therapy; Z98.84 Bariatric surgery status; Z98.890 Other specified postprocedural states; Z90.49 Acquired absence of other specified parts of digestive tract; Z87.891 Personal history of nicotine dependence; Z90.710 Acquired absence of both cervix and uterus
CPT/HCPCS: 72131; 86850; 86900; 86901

== ENCOUNTER → 2023-01-11 | Outpatient (CLI) | payer OTHER ==
--- NOTE | 2023-01-14 10:18 | MR ---
EXAMINATION TYPE: MR lumbar spine wo con DATE OF EXAM: 01/11/2023 8:47 PM COMPARISON: Radiographs 11/02/2022, CT 9 cm and 22. CLINICAL INDICATION:Female, 57 years old with history of M54.16 RADICULOPATHY, LUMBAR REGION;LOW BACK PAIN INTO HIPS, BACK SURGERY 07-03-2022, FELL OUT OF BED TECHNIQUE: Multi planar, multi sequence imaging was performed utilizing: T1-weighted, T2-weighted, a nd turbo inversion recovery imaging of the lumbar spine. IV Contrast: None. FINDINGS: Alignment: The lumbar vertebral bodies have preserved heights. There is grade 1 anterolisthesis of L4 and L5. Cord: The conus medullaris and the distal spinal cord appear unremarkable with regards to their signa l intensity and morphology. Bones/Discs: Post fixation changes at L4 and L5. Hardware appears in appropriate position. Bone signa l is within normal limits. No abnormal bony edema on inversion recovery sequences. Multilevel degener ative disc disease is noted and most pronounced at the L3-L4 and L4-L5. Disc desiccation at L4-L5. T12-L1: No evidence of significant spinal canal stenosis or neural foraminal stenosis. L1-L2: No evidence of significant spinal canal stenosis or neural foraminal stenosis. L2-L3: No evidence of significant spinal canal stenosis or neural foraminal stenosis. L3-L4: Disc bulge and facet joint arthropathy result in moderate spinal canal and mild to moderate bi lateral neural foraminal stenosis. L4-L5: Disc uncovering from grade 1 anterolisthesis and facet joint arthropathy with moderate spinal canal stenosis and moderate right and mild to moderate left neural foraminal stenosis. L5-S1: The disc is rounded posterior morphology without significant spinal canal stenosis. Facet join t arthropathy with mild neural foraminal stenosis. Other findings: None. IMPRESSION: 1. Post fixation changes at L4-L5 with persistent moderate spinal canal and moderate right and mild to moderate left neural foraminal stenosis. No abnormal bony edema is visualized. 2. L3-L4 disc bulge with moderate spinal canal stenosis and mild to moderate bilateral neural forami nal stenosis.
== END | disposition home or self-care (01) ==
LOC: RADMRIMAIN 18:58
PROVIDERS: ATTEND Nurse Practitioner Family
DX: M51.16 Intervertebral disc disorders with radiculopathy, lumbar region (principal); M48.061 Spinal stenosis, lumbar region without neurogenic claudication; M99.71 Connective tissue and disc stenosis of intervertebral foramina of cervical region; M99.73 Connective tissue and disc stenosis of intervertebral foramina of lumbar region
CPT/HCPCS: 72148

== ENCOUNTER → 2023-03-07 | Outpatient (CLI) | payer OTHER ==
[2023-03-07 14:11] VITALS: BP 163/91; PULSE 67; RESP 18; TEMP 98.1
--- NOTE | 2023-03-07 14:31 | P.PAINPG ---
PQRS Measure Charge Sheet Comment: HISTORY OF PRESENT ILLNESS: 57 yr old female w daughter at side as a referral from Dr Albarado presents today w severe and chronic BLP secondary to DDD, spondylosis and facet arthropathy without myelopathy for evaluation. Pt states pain level is provoked at 10/10 in intensity, constant, localized in the lower lumbar spine, burning, achy, sharp in character w shooting pain towards the BLEs. Pain is provoked by bending, twisting, lifting. Pain is alleviated by PT x 4 wks in Nov 2022, massage integrated w PT, heat, ice, medications (Neurontin, Elavil, Ibu, [place]), topical, repositioning and rest. PMH: GERD, OA PSH: Gastric Sleeve Surgery, C Section x3, Cholecystectomy, Hysterectomy, BL CTR, Orthopedic Surgery SH: Former tobacco user (Quit 20 yrs ago), No ETOH abuse, Cannabis use FH: Noncontributory All: NKDA Meds: See list REVIEW OF ORGAN SYSTEMS: CONSTITUTIONAL: No fevers or chills. No recent weight loss. NEUROLOGICAL: + numbness and tingling along the distal extremities. No seizure disorders or headaches. MUSCULOSKELETAL: + pain PSYCHIATRIC: Denies current depression or suicidal thoughts. Physical Examinations : Constitutional : Cooperative , not in acute distress . Neurologic : Cranial nerve II to XII intact. No focal neurological deficits. Psychiatric : alert & oriented x 3. Matching mood & appropriate affect. Judgment & insight intact. Musculoskeletal : Cervical Spine Motor strength in the deltoid and biceps: Normal right side. Normal Left side Motor strength biceps and the wrist extensors: Normal right side . Normal left side Motor strength in the triceps muscle: Normal right side. Normal left side Deep tendon reflexes: Normal at the biceps. Normal at Brachioradialis. Normal at triceps Vertebral body tenderness to deep palpation over Cervical facet loading test: positive bilaterally Spurling test: positive bilaterally Neck distraction test: positive bilaterally Joanne sign: positive bilaterally Lumbar spine Motor strength lower extremities ,thigh and legs 5/5 Right side , 5/5 Left side Deep tendon reflexes : Normal Knee Jerk. Normal Ankle Jerk Vertebral body tenderness over L4 Lumbar facet Loading Test: positive Right / positive Left Range of motion of the lumbar spine Flexion 30 degrees, extension 10 degrees Straight Leg Raise test: Left/ Right positive at <45 degrees Yuridia test: positive right / positive left. Severe tenderness over the Sacroiliac joint on the Right / Left sides Gaenslen test: positive bilaterally Seated flexion test: positive bilaterally. Sacral spine : Severe tenderness over the Sacroiliac joint: right side / left side Range of motion: Flexion of the lumbar spine <60 degrees Range of motion: Extension of the lumbar spine <20 degrees Gaenslen's Test positive Dima's Test positive Yuridia test: positive right side / left side Thigh Thrust Test Sacral Thrust Test Imaging: MRI non contrast of the lumbar spine from 01/11/23 reviewed Assessment/ Plan : Lumbar DDD Recommendation of BL TFESI L4-L5. May need a series of injections for optimal pain relief. Risks, benefits of procedure discussed and patient verbalized understanding. Admits to aspirin or anti- coagulant use or medical history of diabetes. Protocol for discontinuation/ continuation of medications norah procedure discussed. All questions answered. I have spent greater than 30 minutes on patient care today. Dr Ashraf was available by phone for the evaluation of this patient. The time was used to review the medical records including relevant urine studies and Prescription history (MAPs), review of the available imaging, evaluation and examination of the patient, coordination of care with the medical staff and if applicable referring physicians, as well as creation of the medical record Home Medications: Ambulatory Orders Amitriptyline HCl 50 mg PO HS 04/24/22 Dexlansoprazole [Dexilant] 60 mg PO HS 06/19/22 Ibuprofen [Motrin] 800 mg PO TID PRN 06/20/22 Lidocaine 5% Patch [Lidoderm 5% Patch] 1 patch TOPICAL HS PRN 06/28/22 ALPRAZolam [Xanax] 0.25 mg PO TID PRN 07/03/22 Cyclobenzaprine [Flexeril] 5 mg PO TID #24 tablet 07/04/22 Gabapentin 300 mg PO TID #30 cap 07/04/22 HYDROcodone/APAP 5-325MG [[place] 5-325] 1 tab PO Q6HR PRN #32 tab 07/04/22 Sennosides/Docusate Sodium [Senna Plus 8.6-50 mg Tablet] 1 each PO DAILY #20 tab 07/04/22 cefaDROXiL [Duricef] 500 mg PO Q12HR 5 Days #10 cap 07/04/22 Controlled Substance Measures - Controlled Substance Measures Is patient prescribed a controlled substance at discharge?: No
== END | disposition home or self-care (01) ==
LOC: PNWHC3 12:17
PROVIDERS: ATTEND Specialist
DX: M51.16 Intervertebral disc disorders with radiculopathy, lumbar region (principal); M47.26 Other spondylosis with radiculopathy, lumbar region; K21.9 Gastro-esophageal reflux disease without esophagitis; E11.9 Type 2 diabetes mellitus without complications; M19.90 Unspecified osteoarthritis, unspecified site; Z98.84 Bariatric surgery status; Z90.49 Acquired absence of other specified parts of digestive tract
CPT/HCPCS: 99211

== ENCOUNTER 2023-04-09 08:44 | Day surgery (SDC) | payer OTHER ==
[2023-04-04 16:04] VITALS: BMI 37.3
[~2023-04-09 08:44] MED LIST changes: -ACETAMINOPHEN TAB 500 MG TAB PO PRN; -GABAPENTIN 300 MG CAP PO PRN; -HYDROmorphone 0.5 MG/0.5 ML SYRINGE IVP PRN; +LACTATED RINGERS 1,000 ML IV SCH; -ONDANSETRON 4 MG/2 ML VIAL IVP ONE; -ONDANSETRON 4 MG/2 ML VIAL IVP PRN; -SCOPOLAMINE 1 MG/72 HR PATCH TRANSDERM ONE; -TRANEXAMIC ACID IN NACL,ISO-OS 1,000 MG in SALINE 1 100ML.BAG IVPB PRN
[2023-04-09 09:02] VITALS: RESP 16; TEMP 97
[2023-04-09] MEDS ORDERED: IOPAMIDOL M200 10 ML VIAL ONE (09:14)
[2023-04-09] MEDS ORDERED: methylPREDNISolone ACETATE 80 MG/ML 1 ML VIAL ONE (09:14)
--- NOTE | 2023-04-09 09:24 | P.PCN ---
Date of Procedure: 04/09/23 Procedure(s) Performed: PREOPERATIVE DIAGNOSIS: 1-Lumbar radiculopathy . 2-lumbar degenerative disc disease. POSTOPERATIVE DIAGNOSIS: 1-lumbar radiculopathy. 2-lumbar degenerative disc disease. PROCEDURE 1. Transforaminal epidural steroid injection under fluoroscopic guidance at bilateral L4-5 level. (Fluoroscopy images stored on file in the radiology Department ) 2. Lumbar epidurogram . ANESTHESIA: Local with 1% lidocaine 3 ml. . EBL: Minimal PROCEDURE INDICATION: The patient with low back pain and radiculopathy symptoms unresponsive to conservative treatment. PROCEDURE DESCRIPTION / TECHNIQUE: The patient was seen and identified in the preoperative area. Risks, benefits, complications, and alternatives were discussed with the patient. The patient agreed to proceed with the procedure and signed the consent. IV was started, and vital signs were stable. Patient was taken to the OR and time out was completed. The patient was placed in the prone position on procedure table and a pillow was placed under the abdomen to reduce lumbar lordosis. The lumbosacral area was prepped and draped in the usual sterile fashion. Critical pause was taken. Vital signs were closely monitored during the procedure.. Using oblique fluoroscopy, the chin of the ``Edu dog at right L4-5 level was identified, and the skin and deeper tissues just below was localized with 1% lidocaine. Subsequently, a 22-gauge 3.5-inch spinal needle was advanced under a tunneled view fluoroscopic guidance just underneath the chin of the ``Edu dog at the right L4-5 Under lateral fluoroscopy, the needle was then advanced to the posterior border of the interforaminal space. After negative aspiration of CSF and blood and with no paresthesias, 1 mL Isovue 200 contrast dye was injected excellent epidurogram and outlining of the nerve root Subsequently, 3 mL of block solution containing 40 mg Depo-Medrol and 2 mL of 0.9% normal saline PF was injected. Needle was removed and the same procedure was repeated at the left L4-5 level (s). At the end of the procedure, skin was cleansed, and bandages were applied. COMPLICATIONS:none DISPOSITION / PLANS: The patient was placed in a supine position and transferred to the recovery area in a stable condition for observation. There was no evidence of lower extremity motor or sensory deficit after the procedure. Patient was discharged from the recovery room after meeting discharge criteria. Home discharge instructions were given to the patient by the staff. The patient was reexamined prior to discharge.
[2023-04-09 09:28] VITALS: BP 135/70; PULSE 81
--- NOTE | 2023-04-09 09:38 | FL ---
EXAMINATION TYPE: FL guided pain mgmt statistic DATE OF EXAM: 04/09/2023 HISTORY: Fluoroscopy time Total dose area product (DAP) in uGy*m?, mGy*cm? (or similar): 0.99963 IMPRESSION: 1. Fluoroscopy time.
== END 2023-04-09 09:42 | disposition home or self-care (01) ==
LOC: ORPAIN 08:44
PROVIDERS: ATTEND Specialist
DX: M51.16 Intervertebral disc disorders with radiculopathy, lumbar region (principal); Z91.040 Latex allergy status
CPT/HCPCS: 64483; J1040; Q9966